=== PATIENT | female | born 1990 | race African-American/Black ===

== ENCOUNTER 2024-07-14 13:58 | Emergency (ER) | payer OTHER ==
[~2024-07-14] VITALS: Ht 177.8 cm; Wt 76.3 kg
[2024-07-14 15:29] LABS: URINE PREG TEST NEGATIVE (NEGATIVE)
[2024-07-14 17:35] VITALS: BP 106/55; TEMP 98.4; O2SAT 99
[2024-07-14] MEDS ORDERED: MIRA3350 PO (17:39)
[2024-07-14] MEDS ORDERED: COLA100C5 PO (17:39)
== END 2024-07-14 17:47 | disposition home or self-care (01) ==
LOC: M ED 13:58
DX: K59.00 Constipation, unspecified (principal); R10.32 Left lower quadrant pain; F10.10 Alcohol abuse, uncomplicated

== ENCOUNTER → 2025-05-21 | Outpatient (CLI) | payer OTHER ==
[~2025-05-21] MED LIST: COLA100C5 PO; MIRA3350 PO
== END ==
LOC: M WHC 15:13
PROVIDERS: ATTEND Student in an Organized Health Care Education/Training Program
DX: N63.20 Unspecified lump in the left breast, unspecified quadrant (principal)
CPT/HCPCS: 76642; 77066; G0279